=== PATIENT | female | born 1955 | race Caucasian/White ===

== ENCOUNTER → 2016-10-02 | Outpatient (CLI) | payer OTHER ==
[2015-01-01 07:57] VITALS: BP 124/80
[~2016-10-02] MED LIST: ASPI-482 PO; ATEN50TA PO; GREE1CAP5 PO; KRIL500C PO; LACT1CAP29 PO; LOSA50TA6 PO; MAGN400C PO; OMEP40CA5 PO; RED600TA PO; VITA400C37 PO
[2016-10-02 08:24] LABS: CALCIUM 9.4 mg/dL (8.5-10.1); CREATININE 0.7 mg/dL (0.6-1.0); GFR 85.1; POTASSIUM 4.1 mmol/L (3.5-5.1)
[2016-10-02 08:28] LABS: CHOLESTEROL/HDL RATIO 2.8
== END | disposition home or self-care (01) ==
LOC: LAB 06:52
PROVIDERS: ATTEND Obstetrics & Gynecology
DX: Z13.220 Encounter for screening for lipoid disorders (principal); R73.09 Other abnormal glucose
CPT/HCPCS: 36415; 80048; 80061; 83036; 84443; 86803

== ENCOUNTER → 2016-10-24 | Outpatient (CLI) | payer OTHER ==
[2015-01-01 07:57] VITALS: BP 124/80
== END | disposition home or self-care (01) ==
LOC: KCIC MAMMO 09:09
PROVIDERS: ATTEND Obstetrics & Gynecology
DX: Z12.31 Encounter for screening mammogram for malignant neoplasm of breast (principal)
CPT/HCPCS: 77063; G0202; 77067

== ENCOUNTER → 2017-06-21 | Day surgery (SDC) | payer OTHER ==
[~2017-06-21] MED LIST changes: -ASPI-482 PO; -ATEN50TA PO; -GREE1CAP5 PO; -KRIL500C PO; -LACT1CAP29 PO; +LIDOCAINE 1% PF 2 ML VIAL. ID; +LIDOCAINE 2% 100 MG/5 ML SYRINGE.; -LOSA50TA6 PO; -MAGN400C PO; +MIDAZOLAM HCL/PF 2 MG/2 ML VIAL. IV; -OMEP40CA5 PO; +PROPOFOL 20 ML IV; -RED600TA PO; -VITA400C37 PO; +fentaNYL PF VIAL 100 MCG/2 ML VIAL IV
[2017-06-21] MEDS: IV RINGERS,LACTATED 1000ML 1,000 ML IV (11:25)
== END | disposition home or self-care (01) ==
LOC: SURG 11:02
DX: K22.2 Esophageal obstruction (principal); K21.0 Gastro-esophageal reflux disease with esophagitis; I10 Essential (primary) hypertension; Z91.040 Latex allergy status; Z88.2 Allergy status to sulfonamides; Z82.49 Family history of ischemic heart disease and other diseases of the circulatory system; Z83.3 Family history of diabetes mellitus; Z80.41 Family history of malignant neoplasm of ovary; Z72.89 Other problems related to lifestyle; Z79.82 Long term (current) use of aspirin; Z79.899 Other long term (current) drug therapy; Z90.710 Acquired absence of both cervix and uterus; Z98.890 Other specified postprocedural states
CPT/HCPCS: 43239; 88305; J2704

== ENCOUNTER → 2018-01-17 | Outpatient (CLI) | payer OTHER ==
[2017-06-21 12:58] VITALS: BP 148/65
[~2018-01-17] MED LIST changes: +ASPI-482 PO; +ATEN50TA PO; +GREE1CAP5 PO; +KRIL500C PO; +LACT1CAP29 PO; -LIDOCAINE 1% PF 2 ML VIAL. ID; -LIDOCAINE 2% 100 MG/5 ML SYRINGE.; +LOSA50TA7 PO; +MAGN400C PO; -MIDAZOLAM HCL/PF 2 MG/2 ML VIAL. IV; +OMEP40CA5 PO; +PANT20TA2 PO; -PROPOFOL 20 ML IV; +RED600TA PO; +VITA400C37 PO; -fentaNYL PF VIAL 100 MCG/2 ML VIAL IV
--- NOTE | 2018-01-17 14:20 | KCIC ---
Bilateral digital screening mammograms with 3-D tomosynthesis: Reason for examination: Routine screening. Comparison is made to previous studies dated 10/24/2016 and 05/20/2015. Bilateral mammograms in CC and oblique projections were obtained with 2-D imaging and 3-D tomosynthesis imaging on a Siemens Inspiration unit and reviewed on the workstation. Interpretation was made with the benefit of CAD. The skin and nipples show no abnormalities. No abnormal axillary lymph nodes are seen. The breast parenchyma shows scattered fatty and fibroglandular density. (Breast density: Category B.) There are benign-appearing nodular densities seen bilaterally which are unchanged changed. There are no new dominant masses, suspicious calcifications or architectural distortion. Impression: No evidence of malignancy. Recommend routine screening. BI-RAD Category 2: Benign. "Our facility is accredited by the [employer] Mammography Program." This patient's information has been entered into a reminder system for the patient to be notified with the results of her examination and a target date for the next mammogram. Electronically signed by: Yane Ramírez MD (01/17/2018 2:17 PM) [facility]
== END | disposition home or self-care (01) ==
LOC: KCIC MAMMO 09:06
PROVIDERS: ATTEND Obstetrics & Gynecology
DX: Z12.31 Encounter for screening mammogram for malignant neoplasm of breast (principal)
CPT/HCPCS: 77063; 77067

== ENCOUNTER → 2018-12-24 | Day surgery (SDC) | payer OTHER ==
[~2018-12-24] MED LIST changes: +LIDOCAINE 1% Multi-Dose 20 ML VIAL. IJ ONE; +LIDOCAINE 1% Multi-Dose 20 ML VIAL. INJ ONE; +LIDOCAINE 1%/EPI 1:100,000 20 ML VIAL. INJ ONE; +LOSA-73 PO; -LOSA50TA7 PO; +OMEP40CA45 PO; -OMEP40CA5 PO
[2018-12-24 09:00] VITALS: BP 146/78
--- NOTE | 2018-12-24 09:56 | DISCH ---
DISCHARGE INSTRUCTIONS Condition on Discharge Condition on Discharge: Stable Activity After Discharge Activity Instructions for Disc: Avoid exertion Diet after Discharge Additional Diet Restrictions: resume pre op diet Wound Incision Care Other wound/incision instructi: keep wound dry and oopen to air as much as possible Contacting the after DC Call your doctor for: Follow-Up Follow up with: call and make appointment to see me in 14 days AGUSTÍN MCMAHON MD Dec 24, 2018 09:56
--- NOTE | 2018-12-24 09:57 | PDOC ---
SURGICAL PROGRESS NOTE Vital Signs Vital Signs Date Time Temp Pulse Resp B/P (MAP) Pulse Ox O2 Delivery O2 Flow Rate FiO2 12/24/18 09:00 74 20 96 Room Air AGUSTÍN MCMAHON MD Dec 24, 2018 09:57
--- NOTE | 2018-12-24 10:01 | PDOC ---
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
--- NOTE | 2018-12-24 10:29 | HP ---
ADMIT DATE: 12/24/2018 HISTORY OF PRESENT ILLNESS: The patient is sent to me by Dr. Scott because of a lesion of the right anterior proximal middle toe. Apparently, she had a lesion there that was biopsied. 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 She sought help from a number of people including medicaid business analyst and other people at [facility] and no one was able to help because of various reasons. She came to me. PAST MEDICAL HISTORY: Shows she does have some heart disease for which she takes medicine and also has an [employer]. SOCIAL HISTORY: She does not smoke, drink or use illicit drugs. FAMILY HISTORY: Noncontributory. PHYSICAL EXAMINATION: Limited. Chest and heart unremarkable, but she did have a small scar from punch biopsy to the proximal lateral anterior middle toe. It was not painful at this point, the stitches and surgical site at the base of the heel. You can still see the indentation where the biopsy had been done, however. 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 AGUSTÍN MCMAHON MD DR: GARTH/william JOB#: [id number] / [id number] ANGELA
--- NOTE | 2018-12-25 00:09 | OP ---
DATE OF SURGERY: SURGEON: Aamir Mcmahon MD. 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 ANESTHESIA: Xylocaine 1%. PROCEDURE: Wider excision of the previous biopsy site of the right middle toe. TECHNIQUE: The area was properly prepped and draped in Betadine solution, making certain to get all of the toes and distal foot. The drapes were placed between the second and third toes and the fifth and fourth toes. This was draped, so that only those two toes remain, that is the middle and the fourth one. The lesion was very small at the proximal lateral portion of the middle toe on the right. We did sarbjit it with a marking pen and then made a wider excision using a #11 blade initially to go around the area. We went about 3-4 mm in all directions around the mass and we took all of the skin beneath it and some of the subcutaneous. We did see the tendon there. We did not damage the tendon or other structures; however. The lesion was sent to the lab and in the distal portion, we put a small suture there for orientation. We could not see grossly anything other than the small lesion in the skin in the cutaneous area. The resultant defect was approximated using interrupted 5-0 nylon. The procedure was then terminated as sterile dressing was applied. Blood loss was probably 2-3 mL. Fluids given were none. No drains were used. The condition of the patient was satisfactory as she was given instructions. She understands that she has this lesion; we did a wider excision, do not have the ability to do the Mohs procedure and therefore we will have to wait on the results and see if wide excision is enough. She also will be followed by the oncologist and the natural resources professor. We did this as she had no other way to have this lesion removed at this time for wide excision. AAMIR MCMAHON MD DR: GARTH/william JOB#: [id number] / [id number] ANGELA
--- NOTE | 2018-12-25 16:06 | PATHOLOGY ---
[facility] Accession Number: [id number] . 01 Material submitted: . foot - MASS ANTERIOR MIDDLE RIGHT TOE STITCH ON DISTAL END. Modifiers: right . 01 Clinical history: . Reexcision of punch biopsy concerning for evolving melanoma in situ . 02 Diagnosis: Two pieces of skin, anterior middle right toe, re-excision: - Previous biopsy site changes. There is no evidence of a residual melanocytic lesion. ([facility]; 12/25/2018) QMS 12/25/2018 1348 Local . 02 Electronically signed: . Kellee Trujillo MD, Pathologist NPI- [id number] . 01 Gross description: . The specimen is received in formalin, labeled "Nyasia Stubbs, mass anterior middle right toe, stitch on distal end", is an oriented ellipse of fischer-white skin measuring 1.2 x 0.6 x 0.1 cm. The specimen is oriented with a suture at one tip designated as distal end, this is arbitrarily designated as 12:00. The specimen is inked as follows: 12:00 to 3:00 = yellow, 3:00 to 6:00 = blue, 6:00 to 12:00 including deep = black. The specimen is serially sectioned from 12:00 to 6:00 (distal to proximal) and into 5 pieces and entirely submitted in A1-A2 with tips in A2. Also within the container is a similar segment of skin measuring 0.7 x 0.2 cm, inked black and entirely submitted in A3. ([facility]; 12/24/2018) [facility] 12/24/2018 1721 Local . 02 Pathologist provided ICD-10: L98.8 . 02 CPT . 833785 Specimen Comment: A courtesy copy of this report has been sent to [facility] Comment: [phone], . Specimen Comment: Report sent to / DR COX Specimen Comment: A duplicate report has been generated due to demographic updates. Performed at: 01 [facility] [address], [place] [id number] MD Brian Spring MD Phone: [phone] Performed at: 02 [facility] [place] [address] [id number] MD Kellee Trujillo MD Phone: [phone]
== END | disposition home or self-care (01) ==
LOC: SURG 07:49
PROVIDERS: ATTEND Specialist
DX: L98.8 Other specified disorders of the skin and subcutaneous tissue (principal)
CPT/HCPCS: 11422; 88305; J3490

== ENCOUNTER → 2019-01-24 | Outpatient (CLI) | payer OTHER ==
[2018-12-24 09:00] VITALS: BP 146/78
[~2019-01-24] MED LIST changes: -LIDOCAINE 1% Multi-Dose 20 ML VIAL. IJ ONE; -LIDOCAINE 1% Multi-Dose 20 ML VIAL. INJ ONE; -LIDOCAINE 1%/EPI 1:100,000 20 ML VIAL. INJ ONE
== END | disposition home or self-care (01) ==
LOC: SPEC 15:18
PROVIDERS: ATTEND Obstetrics & Gynecology
DX: Z01.419 Encounter for gynecological examination (general) (routine) without abnormal findings (principal)
CPT/HCPCS: 88175

== ENCOUNTER → 2019-01-29 | Outpatient (CLI) | payer OTHER ==
[2018-12-24 09:00] VITALS: BP 146/78
--- NOTE | 2019-01-29 12:36 | KCIC ---
Bilateral digital screening mammograms with 3-D tomosynthesis: Reason for examination: Routine screening. Comparison is made to previous studies dated 01/17/2018 and 10/24/2016. Bilateral mammograms in CC and oblique projections were obtained with 2-D imaging and 3-D tomosynthesis imaging on a Siemens Inspiration unit and reviewed on the workstation. Interpretation was made with the benefit of CAD. The skin and nipples show no abnormalities. No abnormal axillary lymph nodes are seen. The breast parenchyma shows scattered fatty and fibroglandular density. (Breast density: Category B.) There continues to be some nodular asymmetry in the 9:00 B and 9:30 B position of the right breast which is unchanged. There are no new dominant masses, suspicious calcifications or architectural distortion. Impression: No evidence of malignancy. Recommend routine screening. BI-RAD Category 2: Benign. "Our facility is accredited by the [employer] Mammography Program." This patient's information has been entered into a reminder system for the patient to be notified with the results of her examination and a target date for the next mammogram. Electronically signed by: Yane Ramírez MD (01/29/2019 12:33 PM) [facility]
== END | disposition home or self-care (01) ==
LOC: KCIC MAMMO 08:56
PROVIDERS: ATTEND Obstetrics & Gynecology
DX: Z12.31 Encounter for screening mammogram for malignant neoplasm of breast (principal); N64.89 Other specified disorders of breast
CPT/HCPCS: 77063; 77067

== ENCOUNTER → 2019-03-27 | Outpatient (CLI) | payer OTHER ==
[2018-12-24 09:00] VITALS: BP 146/78
[2019-03-27 08:09] LABS: BASO # 0.1 x10^3/uL (0.0-0.2); BASO % 1 % (0-3); EOS # 0.3 x10^3/uL (0.0-0.7); EOS % 5 % (0-3); HEMATOCRIT 40.7 % (36.0-47.0); HEMOGLOBIN 13.8 g/dL (12.0-15.5); LYMPH # 2.8 x10^3/uL (1.0-4.8); LYMPH % 47 % (24-48); MEAN CORPUSCULAR HEMOGLOBIN 30 pg (25-35); MEAN CORPUSCULAR HGB CONC 34 g/dL (31-37); MEAN CORPUSCULAR VOLUME 89 fL (79-100); MONO # 0.6 x10^3/uL (0.0-1.1); MONO % 9 % (0-9); NEUT # 2.2 x10^3/uL (1.8-7.7); NEUT % 37 % (31-73); PLATELET COUNT 215 x10^3/uL (140-400); RED BLOOD COUNT 4.58 x10^6/uL (3.50-5.40); RED CELL DISTRIBUTION WIDTH 14.1 % (11.5-14.5); WHITE BLOOD COUNT 5.9 x10^3/uL (4.0-11.0)
[2019-03-27 08:21] LABS: ALBUMIN 3.8 g/dL (3.4-5.0); ALBUMIN/GLOBULIN RATIO 1.1 (1.0-1.7); CALCIUM 9.1 mg/dL (8.5-10.1); CHOLESTEROL/HDL RATIO 4.6; CREATININE 0.7 mg/dL (0.6-1.0); GFR 84.2; POTASSIUM 3.8 mmol/L (3.5-5.1); TOTAL BILIRUBIN 0.5 mg/dL (0.2-1.0); TOTAL PROTEIN 7.2 g/dL (6.4-8.2)
[2019-03-27 08:31] LABS: FREE T4 0.9 ng/dL (0.76-1.46); THYROID STIM HORMONE (TSH) 3.298 uIU/mL (0.358-3.74)
== END | disposition home or self-care (01) ==
LOC: LAB 07:31
PROVIDERS: ATTEND Physician Assistant Medical
DX: Z00.00 Encounter for general adult medical examination without abnormal findings (principal); Z13.220 Encounter for screening for lipoid disorders; I10 Essential (primary) hypertension; R53.83 Other fatigue
CPT/HCPCS: 36415; 80053; 80061; 84439; 84443; 85025

== ENCOUNTER → 2021-05-03 | Outpatient (CLI) | payer MEDICARE, OTHER ==
[2018-12-24 09:00] VITALS: BP 146/78
[~2021-05-03] MED LIST changes: -LACT1CAP29 PO; +LACT1CAP37 PO; -OMEP40CA45 PO; +OMEP40CA7 PO
--- NOTE | 2021-05-03 12:18 | KCIC ---
EXAM: DUAL ENERGY X-RAY ABSORPTIOMETRY (DEXA). HISTORY: Postmenopausal screening. FINDINGS: The lowest measured T-score is -1.8 in the lumbar spine, based on a bone mineral density of 0.844 g/cm^2. Refer to the worksheets for full detail. No comparison examinations are available. IMPRESSION: 1. Low bone mass. Bone mineral density yields a T-score between -1.0 and -2.5. Fracture risk is incre ased. 2. FRAX report: Not calculated. METHODOLOGY: Dual energy x-ray absorptiometry was performed to measure bone mineral density. The foll owing analysis is based on the 2019 Official Positions of the International Society for Clinical Dens itometry: Measurements of the hips and the average of L1-L4 are preferred. When the spine and/or hip cannot be feasibly measured or interpreted, or in the setting of hyperparathyroidism, distal radial bone minera l density may be measured. The lumbar spine T-score is based on the average bone mineral density of L1-L4. In the setting of art ifact or anatomic abnormality, some lumbar levels may be excluded, and the remaining levels used for calculation. A single lumbar level is not used for diagnosis, and if only a single level is available for assessment, another anatomic site will be used to assign a diagnosis. The hip T-score is based on the bone mineral density measurement of the femoral neck or total proxima l femur of either side, whichever is lowest. Bilateral mean values are not used for diagnosis. The forearm T-score is derived from 33% of the distal radius of the nondominant forearm. Electronically signed by: Maria Fernanda Thomason MD (05/03/2021 12:16 PM) [id number]
--- NOTE | 2021-05-03 14:15 | KCIC ---
Bilateral digital screening mammograms with 3-D tomosynthesis: Reason for examination: Routine screening. Comparison is made to previous studies dated back to 04/17/2014. Bilateral mammograms in CC and oblique projections were obtained with 2-D imaging and 3-D tomosynthes is imaging on a Siemens Inspiration unit and reviewed on the workstation. Interpretation was made wit h the benefit of CAD. The skin and nipples show no abnormalities. No abnormal axillary lymph nodes are seen. The breast par enchyma shows scattered fatty and fibroglandular density. (Breast density: Category B.) There are no dominant masses, suspicious calcifications or architectural distortion. Impression: No evidence of malignancy. Recommend routine screening. BI-RAD Category 1: Negative. "Our facility is accredited by the [employer] Mammography Program." This patient's information has been entered into a reminder system for the patient to be notified wit h the results of her examination and a target date for the next mammogram. Electronically signed by: Yane Ramírez MD (05/03/2021 2:12 PM) [id number]
== END ==
LOC: KCIC MAMMO 10:10
PROVIDERS: ATTEND Obstetrics & Gynecology
DX: Z12.31 Encounter for screening mammogram for malignant neoplasm of breast (principal); M85.88 Other specified disorders of bone density and structure, other site; E28.39 Other primary ovarian failure; Z78.0 Asymptomatic menopausal state
CPT/HCPCS: 77063; 77067; 77080